=== PATIENT | female | born 1995 | race Two or more races ===

== ENCOUNTER 2020-10-21 14:57 | Outpatient (CLI) | payer OTHER | END 2020-10-28 08:15 | disposition home or self-care (01) | LOC: RAD 14:57 | PROVIDERS: ATTEND Podiatrist Foot Surgery | DX: M20.41 Other hammer toe(s) (acquired), right foot (principal); M20.42 Other hammer toe(s) (acquired), left foot ==

== ENCOUNTER 2021-01-02 15:55 | Outpatient (CLI) | payer OTHER | END 2021-01-02 16:25 | disposition home or self-care (01) | LOC: OFIC 805 15:55 | PROVIDERS: ATTEND Otolaryngology Otology & Neurotology | DX: J03.80 Acute tonsillitis due to other specified organisms (principal); R19.6 Halitosis ==

== ENCOUNTER 2021-04-29 10:39 | Outpatient (CLI) | payer OTHER | END 2021-04-29 10:57 | disposition home or self-care (01) | LOC: LAB 10:39 | PROVIDERS: ATTEND Emergency Medicine Pediatric Emergency Medicine | DX: Z03.818 Encounter for observation for suspected exposure to other biological agents ruled out (principal) ==

== ENCOUNTER 2021-07-14 10:22 | Outpatient (CLI) | payer OTHER | END 2021-07-14 12:14 | disposition home or self-care (01) | LOC: LAB 10:22 | PROVIDERS: ATTEND General Practice | DX: R05.8 Other specified cough (principal); J15.8 Pneumonia due to other specified bacteria ==

== ENCOUNTER 2021-12-05 08:46 | Outpatient (CLI) | payer OTHER | END 2021-12-05 14:32 | disposition home or self-care (01) | LOC: LAB 08:46 | PROVIDERS: ATTEND General Practice | DX: Z00.00 Encounter for general adult medical examination without abnormal findings (principal); E78.5 Hyperlipidemia, unspecified; E55.9 Vitamin D deficiency, unspecified; R42 Dizziness and giddiness; N39.0 Urinary tract infection, site not specified; R10.9 Unspecified abdominal pain ==

== ENCOUNTER 2023-02-01 16:47 | Outpatient (CLI) | payer OTHER | END 2023-02-01 16:55 | disposition home or self-care (01) | LOC: LAB 16:47 | DX: Z03.818 Encounter for observation for suspected exposure to other biological agents ruled out (principal) ==